=== PATIENT | male | born 1965 | race Caucasian/White ===

== ENCOUNTER 2016-10-31 01:00 | Emergency (ER) | payer MEDICAID ==
[2016-10-31 02:44] LABS: BASOPHILS 0.2 % (0-2); EOSINOPHILS 0.5 % (0-7); HEMATOCRIT 42.3 % (42.0-54.0); HEMOGLOBIN 14.1 g/dL (13.5-17.5); IMMATURE GRANULOCYTES 0.3 % (0-5); LYMPHOCYTES 10.1 % (15-50); MCH 30.7 pg (26.0-34.0); MCHC 33.3 g/dL (31.0-37.0); MEAN PLATELET VOLUME 11.2 fL (7.4-10.4); MONOCYTES 8.1 % (2-11); NEUTROPHILS 80.8 % (40-80); PLATELET COUNT 173 10x3/uL (130-400); RDW 14.2 % (11.5-14.5); WBC 12.8 10x3/uL (4.8-10.8)
[2016-10-31 03:02] LABS: ALBUMIN 3.8 g/dL (3.4-5.0); ALKALINE PHOSPHATASE 72 U/L (46-116); ALT (SGPT) 29 U/L (10-68); BILIRUBIN - TOTAL 0.48 mg/dL (0.2-1.3); CALC OSMOLALITY 283 mosm/kg (275-300); CALCIUM 8.4 mg/dL (8.5-10.1); CARBON DIOXIDE 22.2 mmol/L (21.0-32.0); CHLORIDE - SERUM 106 mmol/L (98-107); GLUCOSE 102 mg/dL (74-106); MAGNESIUM - SERUM 2.1 mg/dL (1.8-2.4); POTASSIUM - SERUM 3.7 mmol/L (3.5-5.1); PROTEIN - SERUM 7.2 g/dL (6.4-8.2); SODIUM 143 mmol/L (136-145); UREA NITROGEN 9 mg/dL (7-18); eGFR NON AFRICAN AMERICAN 83 mL/min (90-120)
== END 2016-10-31 14:15 | disposition home or self-care (01) ==
LOC: D.ER 01:00
PROVIDERS: Emergency Medicine
DX: F10.129 Alcohol abuse with intoxication, unspecified (principal); S05.12XA Contusion of eyeball and orbital tissues, left eye, initial encounter; Y04.2XXA Assault by strike against or bumped into by another person, initial encounter; Y93.89 Activity, other specified; Y92.89 Other specified places as the place of occurrence of the external cause; H11.32 Conjunctival hemorrhage, left eye; S00.83XA Contusion of other part of head, initial encounter

== ENCOUNTER 2020-11-29 13:20 | Emergency (ER) | payer MEDICARE, MEDICAID ==
[~2020-11-29] VITALS: Ht 177.8 cm; Wt 95.5 kg
[2020-11-29 13:46] VITALS: BP 117/90; Ht 177.8 cm; Wt 95.5 kg
[2020-11-29] MEDS ORDERED: ZESTRIL10 MG PO (13:47)
[2020-11-29] MEDS ORDERED: HYDROCODONE-AC1 EAC2 PO (13:47)
[2020-11-29] MEDS ORDERED: IBUPROFEN800 MG PO (14:47)
[2020-11-29] MEDS ORDERED: ACETAMINOPHEN500 M1 PO (14:47)
[2020-11-29] MEDS ORDERED: CYCLOBENZAPRINE10 MG PO (14:47)
== END 2020-11-29 15:16 | disposition home or self-care (01) ==
LOC: D.ER 13:20
DX: M25.512 Pain in left shoulder (principal); S43.52XA Sprain of left acromioclavicular joint, initial encounter; S40.012A Contusion of left shoulder, initial encounter; S43.109A Unspecified dislocation of unspecified acromioclavicular joint, initial encounter; W19.XXXA Unspecified fall, initial encounter; I10 Essential (primary) hypertension